=== PATIENT | female | born 1970 | race Caucasian/White ===

== ENCOUNTER 2024-01-22 11:37 | Day surgery (SDC) | payer BC, OTHER ==
[~2024-01-22 11:37] MED LIST: Metoclopramide 10 MG/2 ML SDV IV PRN
[2024-01-22] MEDS: Sodium Chloride 0.9% 1,000 ML IV SCH (12:31)
== END 2024-01-22 16:20 | disposition home or self-care (01) ==
LOC: LB.SDS 11:37
PROVIDERS: ATTEND Surgery
DX: Z12.11 Encounter for screening for malignant neoplasm of colon (principal); E11.9 Type 2 diabetes mellitus without complications; E03.9 Hypothyroidism, unspecified; K21.9 Gastro-esophageal reflux disease without esophagitis; F32.A Depression, unspecified; F41.9 Anxiety disorder, unspecified; Z87.891 Personal history of nicotine dependence; Z79.84 Long term (current) use of oral hypoglycemic drugs; Z79.890 Hormone replacement therapy; Z79.899 Other long term (current) drug therapy
CPT/HCPCS: J2704; J7030

== ENCOUNTER 2024-05-24 10:33 | Day surgery (SDC) | payer OTHER ==
[2024-05-24] MEDS ORDERED: Propofol 200 MG/20 ML SDV ONE (10:40)
[2024-05-24] MEDS: Sodium Chloride 0.9% 1,000 ML IV SCH (10:54)
== END 2024-05-24 12:15 | disposition home or self-care (01) ==
LOC: LB.SDS 10:33
PROVIDERS: ATTEND Surgery
DX: K29.50 Unspecified chronic gastritis without bleeding (principal); K44.9 Diaphragmatic hernia without obstruction or gangrene; K21.9 Gastro-esophageal reflux disease without esophagitis
CPT/HCPCS: J2704; J7030